=== PATIENT | female | born 1950 | race Hispanic/Latino ===

== ENCOUNTER → 2023-11-07 | Outpatient (REF) | payer MEDICARE | LOC: RESP 10:24 → EDSTATUS 11:00 → EDBD 11:00 | PROVIDERS: ATTEND Internal Medicine Critical Care Medicine | DX: R06.02 Shortness of breath (principal); R91.8 Other nonspecific abnormal finding of lung field; M06.9 Rheumatoid arthritis, unspecified; Z88.9 Allergy status to unspecified drugs, medicaments and biological substances; E66.9 Obesity, unspecified; Z87.891 Personal history of nicotine dependence | CPT/HCPCS: 94060; 94727; 94729 ==